=== PATIENT | male | born 1980 | race Caucasian/White ===

== ENCOUNTER 2018-12-21 21:22 | Inpatient (IN) | payer MEDICAID ==
[~2018-12-21] VITALS: Ht 172.7 cm; Wt 84.1 kg
--- NOTE | 2018-12-21 22:20 | NUR ---
PT IN BED RESTING, DENIES ANY NEEDS AT THIS TIME.
[2018-12-21 22:44] LABS: BASOPHILS 0.3 % (0-2); EOSINOPHILS 4.8 % (0-7); HEMATOCRIT 43.1 % (42.0-54.0); HEMOGLOBIN 15.5 g/dL (13.5-17.5); IMMATURE GRANULOCYTES 0.8 % (0-5); LYMPHOCYTES 29.5 % (15-50); MCH 32.8 pg (26.0-34.0); MCV 91.1 fL (80.0-100.0); MEAN PLATELET VOLUME 9.3 fL (7.4-10.4); MONOCYTES 6.3 % (2-11); NEUTROPHILS 58.3 % (40-80); PLATELET COUNT 203 10x3/uL (130-400); RBC 4.73 10x6/uL (4.20-6.10); RDW 12.9 % (11.5-14.5); WBC 8.7 10x3/uL (4.8-10.8)
[2018-12-21 22:53] LABS: ALBUMIN 3.9 g/dL (3.4-5.0); ANION GAP 15.8 mmol/L (8-16); BILIRUBIN - TOTAL 0.23 mg/dL (0.2-1.3); CARBON DIOXIDE 21.6 mmol/L (21.0-32.0); CREATININE - SERUM 1.4 mg/dL (0.6-1.3); POTASSIUM - SERUM 4.4 mmol/L (3.5-5.1); PROTEIN - SERUM 7.8 g/dL (6.4-8.2)
--- NOTE | 2018-12-21 23:00 | NUR ---
PT STOOD UP AND PULLED IV OUT. DRESSING APPLIED TO SITE TO STOP BLEEDING. PT INSTRUCTED TO SIT BACK DOWN IN BED THAT WE NEEDED TO GIVE HIM MORE FLUIDS SO WE NEEDED TO START ANOTHER IV.
[2018-12-22 03:17] VITALS: BP 94/57; BMI 28.1
--- NOTE | 2018-12-22 03:48 | NUR ---
RDCIEVED REPORT FROM [facility], PT ARRIVED BY WHEELCHAIR, VSS WITH BP 97/64 @ RHIS TIME. AAO, BUT APPEARS DROWSY. PT HAD A KNIFE IN HIS BAG, CALLED SECURITY. SECURITY MAN STATES THE BAG SHOULD NOT HAVE LEFT ER IN THE FIRST PLACE. HE STATES TO NOTIFY THE SNUFF GRINDER AND SCREENER. PT CURRENTLY RESTING IN BED. IV BANANNA BAG INFUSING @ 125MLS/HR. PT DENIES ANY FURTHER NEEDS AT THIS TIME. WILL CTM.
--- NOTE | 2018-12-22 03:58 | NUR ---
RECONCILER CALLY KATZ TO CALL ER REGISTRATTION TO COME PICK KNIFE/BAG UP. ER REGISTRATION CALLED AND NOTIFIED.
--- NOTE | 2018-12-22 04:36 | NUR ---
CONDUCTED A SUICIDE SCREEN ON PT, PT ANSWERED YES TO ALL QUESTION ASKED. HE STATES HE HAS BEEN DEPRESSED FOR MONTHS, HE HAD TRIED TO KILL HIMSELF ON SEVERAL OCCASSIONS TO NO AVAIL. HE STATED "AND RECENTLY I BOUGHT A BLUE KNIFE TO KILL MYSELF AFTER I HAVE HAD SEVERAL BOTTLES OF VODKA, BUT I PASSED OUT, AND THAT'S HOW I ENDED IN THE ER." PT STATES HE IS STILL HAVING THIS THOUGHTS AND HE BELIEVES ITS STRONGER THAN EVER. HE ALSO STATES "I THINK I NEED TO BE ADMITTED TO [facility] RN EMERGENCY ROOM NOTIFIED. PT BLOOD ALCOHOL AT THIS TIME IS 387. WILL CTM.
--- NOTE | 2018-12-22 04:43 | NUR ---
TANESHA FROM [facility] CALLED AND STATED THAT A SUICIDE ASSESSMENT WILL BE DONE ONLY IF BLOOD ALCOHOL LEVEL IS LESS THAN 100. PT IN BED WITH EYES CLOSE AT THIS TIME. WILL CTM.
--- NOTE | 2018-12-22 07:46 | NUR ---
WAITING FOR BLOOD ALCOHOL LEVEL. WHEN IT IS BELOW 100 I WAS TOLD WE WILL GET ANOTHER RISK ASSESSMENT COMPLETED. I AM GOING TO CALL FIRE EXTINGUISHER INSPECTOR AGAIN WELL.
[2018-12-22 09:59] VITALS: BP 126/78
--- NOTE | 2018-12-22 09:59 | NUR ---
PATIENT IS RESTING QUIETLY AT THIS TIME. WILL CONTINUE TO MONITOR CLOSELY. PAGING DWORKIN TO FIND OUT WHEN THE NEXT BLOOD ALCOHOL LEVEL NEEDS DRAWN. WILL REPORT TO BRIM FLEXER WHEN IT IS BELOW 100 SO THAT HE CAN HAVE ANOTHER ASSESSMENT DONE.
[2018-12-22 10:15] VITALS: Ht 172.7 cm; Wt 84.1 kg
--- NOTE | 2018-12-22 11:29 | NUR ---
PATIENT IS RESTING QUIETLY. DENIES ANY DESIRE TO HURT HIMSELF AT THIS TIME. CALLED [facility] FOR DR BAKER ABOUT THE BLOOD ALCOHOL LEVEL. WAITING ON RESULTS AND WILL GET ANOTHER PSYCH ASSESSMENT. DR HOUSER HAS BEEN CONSULTED.
--- NOTE | 2018-12-22 12:57 | NUR ---
PATIENT REPORTS THAT HE IS NOT FEELING SUICIDAL AT THIS TIME. HE REPORTS THAT HE THOUGHT HE HAD FELT THAT WAY BECAUSE HE DRANK SO MUCH.
[2018-12-22 13:22] LABS: UDS - AMPHET NEGATIVE QUAL (NEGATIVE); UDS - BARB NEGATIVE QUAL (NEGATIVE); UDS - BENZO NEGATIVE QUAL (NEGATIVE); UDS - COCAINE NEGATIVE QUAL (NEGATIVE); UDS - OPIATE NEGATIVE QUAL (NEGATIVE); UDS - PCP NEGATIVE QUAL (NEGATIVE); UDS - THC NEGATIVE QUAL (NEGATIVE)
[2018-12-22 13:51] LABS: APPEARANCE CLEAR (CLEAR); BILIRUBIN NEGATIVE (NEGATIVE); COLOR YELLOW (YELLOW); GLUCOSE NEGATIVE (NEGATIVE); KETONE MODERATE mg/dL (NEGATIVE); NITRITE NEGATIVE (NEGATIVE); PROTEIN NEGATIVE (NEGATIVE); SPECIFIC GRAVITY 1.025 (1.005-1.020); UROBILINOGEN NORMAL (NORMAL)
[2018-12-22 14:05] VITALS: BP 124/84
--- NOTE | 2018-12-22 14:32 | NUR ---
WAITING ON BLOOD ALCOHOL TO GO DOWN BELOW 100.
--- NOTE | 2018-12-22 16:26 | NUR ---
DR BAKER WANTS THE PATIENT TO HAVE A SITTER. THERE IS A CONSULT FOR DR SOCAR ACKNOWLEDGED THIS MORNING AT 10:30. CALLED CHASSIS ENGINEER AND SHE SAID WE HAVE TO WAIT FOR DAYNE TO ORDER THE SITTER. PATIENT HAS HAD MORE ANXIETY WITHIN THE LAST 30 MINUTES. GIVING HIM FOOD AND STARTING LIBRIUM AND GIVING FLUIDS. PATIENTS PARTNER CALLED CONCERNED AND REPORTS THAT THEY WILL NEED HELP GETTING HIM HOME FROM THE HOSPITAL WHEN HE IS DISCHARGED. THEY ASKED FOR ASSISTANCE PAYING FOR A CAB. CALLED [facility] AGAIN TO SEE IF WE NEED TO CHECK HIS BLOOD ALCOHOL LEVEL AGAIN. I WAS TOLD THAT DR OSCAR WANTS TO DO A PROPER PSYCH EVAL WHEN THE BLOOD ALCOHOL IS BELOW 100. LAST READING WAS ABOVE 100.
--- NOTE | 2018-12-22 17:02 | NUR ---
PATIENT IS HAVING MORE ANXIETY.
[2018-12-22 17:31] VITALS: BP 152/81
--- NOTE | 2018-12-22 19:48 | NUR ---
CALLED MAXINE,[employer]EB[employer] AND POWER PLANT OPERATIONS MANAGER, AND [employer]INOR [employer]. FILLED OUT SUICIDE RISK ASSESSMENT AND WAS POSITIVE. DR OSCAR CAME UP AND SPOKE WITH THE PATIENT JUST NOW.
[2018-12-22 20:00] VITALS: BP 130/88
--- NOTE | 2018-12-22 20:00 | NUR ---
PATIENT LAYING IN BED. NO COMPLAINTS AT THIS TIME. NO DISTRESS NOTED.
[2018-12-23 05:43] VITALS: BP 146/78
[2018-12-23 06:21] LABS: BASOPHILS 0.1 % (0-2); EOSINOPHILS 2.3 % (0-7); HEMATOCRIT 43.3 % (42.0-54.0); HEMOGLOBIN 15.5 g/dL (13.5-17.5); IMMATURE GRANULOCYTES 0.3 % (0-5); LYMPHOCYTES 13.6 % (15-50); MCH 32.1 pg (26.0-34.0); MCHC 35.8 g/dL (31.0-37.0); MCV 89.6 fL (80.0-100.0); MEAN PLATELET VOLUME 9.2 fL (7.4-10.4); MONOCYTES 16.3 % (2-11); NEUTROPHILS 67.4 % (40-80); PLATELET COUNT 167 10x3/uL (130-400); RBC 4.83 10x6/uL (4.20-6.10); RDW 12.8 % (11.5-14.5)
[2018-12-23 06:46] LABS: ALBUMIN 3.3 g/dL (3.4-5.0); ALKALINE PHOSPHATASE 61 U/L (46-116); ALT (SGPT) 31 U/L (10-68); BILIRUBIN - TOTAL 0.74 mg/dL (0.2-1.3); CALCIUM 8.5 mg/dL (8.5-10.1); CARBON DIOXIDE 25.4 mmol/L (21.0-32.0); CHLORIDE - SERUM 106 mmol/L (98-107); GLUCOSE 83 mg/dL (74-106); POTASSIUM - SERUM 3.9 mmol/L (3.5-5.1); PROTEIN - SERUM 6.9 g/dL (6.4-8.2); SODIUM 141 mmol/L (136-145)
[2018-12-23 06:47] LABS: CALC OSMOLALITY 277 mosm/kg (275-300); CREATININE - SERUM 0.9 mg/dL (0.6-1.3); UREA NITROGEN 8 mg/dL (7-18); eGFR NON AFRICAN AMERICAN > 90 mL/min (90-120)
--- NOTE | 2018-12-23 07:07 | NUR ---
PATIENT SITTING ON THE SIDE OF THE BED. NO O2 NOTED AND NO SIGNS OF DISTRESS ARE NOTED. IV TO THE LEFT HAND IS PATENT AND INFUSING NORMAL SALINE. NO SITTER IS NOTED AT THIS TIME. BED IS IN LOW POSITION AND CALL LIGHT IS IN REACH. PATIENT DENIES ANY PAIN AT THIS TIME.
[2018-12-23 09:16] VITALS: BP 141/79
[2018-12-23 13:20] VITALS: BP 160/93
--- NOTE | 2018-12-23 13:52 | CN ---
PATIENT NAME:NAVDEEP ANDREWS MEDICAL RECORD: [id number] : 80 LOCATION:[place] D.2132 ADMIT DATE: 12/22/18 ACCOUNT: [id number] CONSULTING PHYSICIAN: WENDY OSCAR MD REFERRING PHYSICIAN: DONATO JEFF MD DATE OF CONSULTATION: 12/22/2018 PSYCHIATRIC CONSULTATION IDENTIFYING DATA: The patient is 38 years old and he is admitted to the hospital secondary to suicidal statements. CHIEF COMPLAINT: Apparently the patient drank a liter of vodka and two 6 packs of beer in a short period of time. He was in public and was arrested for public intoxication. For some reason, I suppose is probably related to some suicidal statements. The police brought him to the hospital. It has been sometime since he had consumed alcohol and he still had a blood alcohol level of 292 indicating that he was probably close to a toxic dose when he was arrested. The patient is now completely sober, cooperative, and fully oriented. He has a completely euthymic mood and an appropriate affect. He is apologetic for threatening Dr. Jeff and says that he often does stupid and foolish things when he is intoxicated. His urine drug screen was negative for methamphetamine and marijuana, although he states he occasionally will use both. He tells me that his primary drug of choice is alcohol and that he is a binge drinker. He has had difficulty with alcohol withdrawal in the past. He has been to a residential program some years ago and that was the [facility] here in [place]. He would very much like to go back there. MENTAL STATUS EXAMINATION: The patient is awake, alert and oriented to person, place, time and situation. His mood is euthymic. His affect appropriate. Thought processes are goal directed. Memory, concentration, and abstraction abilities are intact. He denies any active intent to harm himself or others as well as overt psychotic symptoms. ASSESSMENT: Alcohol use disorder, severe. PLAN: At this time, the patient is not depressed, not suicidal, and not homicidal. He should be watched for alcohol withdrawal and he can hopefully be transferred to a residential program tomorrow. He is very much interested in this. He does not need a sitter. He is capable of making reasonable informed consent decisions and he is capable of controlling and conforming his behaviors to standards of law and Society. By that I mean, he freely chooses to drink even though when he is intoxicated he does things he would not ordinarily do. He still is responsible for those things when he is intoxicated because he chooses to drink and knows that when he does so, he behaves irrationally. TRANSINT:[id number] Voice Confirmation ID: [id number] DOCUMENT ID: [id number] CONSULT REPORT [id number] NAVDEEP ANDREWS PETER MD at 1352 CC: [id number] DICTATION DATE: 12/22/182003 HOSPITAL SOCIAL WORKER: 12/23/18 0036 ADM IN [facility] [address] [place] [address]
--- NOTE | 2018-12-23 16:06 | MORECARE ---
CASE MANAGEMENT DISCHARGE SUMMARY PATIENT: NAVDEEP ANDREWS UNIT: [id number] ADM DATE: 12/22/18 AGE: 38 : 80 SEX: M ROOM/BED: D.2132 AUTHOR: SUZI CARVALHO PHYSICIAN: REFERRING PHYSICIAN: DONATO BAKER MD DATE OF SERVICE: 12/23/18 Discharge Plan Patient Name: NAVDEEP ANDREWS Facility: [facility]:[place] : 1980 Planned Disposition: Home Anticipated Discharge Date: 12/23/18 Discharge Date: 12/23/2018 Expected LOS: 1 Initial Reviewer: [email or web address] Initial Review Date: 12/23/2018 Generated: 12/23/18 5:05 pm Patient Name: NAVDEEP ANDREWS Page 14454 at 1606 All edits/amendments must be made on the electronic document DICTATION DATE: 12/23/18 1605 CHEMICAL PROCESS ANALYST: CRISSY 12/23/18 1605 RPT#: [id number] DC DATE:12/23/18 STATUS: DIS IN [facility] [address] [place] [address] END OF REPORT
--- NOTE | 2018-12-23 16:14 | MORECARE ---
CASE MANAGEMENT DISCHARGE SUMMARY PATIENT: NAVDEEP ANDREWS UNIT: [id number] ADM DATE: 12/22/18 AGE: 38 : 80 SEX: M ROOM/BED: D.2132 AUTHOR: SUZI CARVALHO PHYSICIAN: REFERRING PHYSICIAN: DONATO BAKER MD DATE OF SERVICE: 12/23/18 Discharge Plan Patient Name: NAVDEEP ANDREWS Facility: [facility]:[place] : 1980 Planned Disposition: Home Anticipated Discharge Date: 12/23/18 Discharge Date: 12/23/2018 Expected LOS: 1 Initial Reviewer: [email or web address] Initial Review Date: 12/23/2018 Generated: 12/23/18 5:14 pm DCPIA - Discharge Planning Initial Assessment Updated by [email or web address]: John Jay on 12/23/18 4:13 pm * Is the patient Alert and Oriented? Yes * How many steps to enter\\exit or inside your home? NONE * PCP [facility], PT IS UNSURE OF WHO THE DOCTOR IS NOW * Pharmacy [facility] * Preadmission Environment Home with Family * ADLs Independent * Equipment None * Other Equipment NO MEDICAL EQUIPMENT PROVIDER PREFERENCE * List name and contact numbers for known caregivers / representatives who currently or will assist patient after discharge: ALFONZO ANDREWS / DANIEL CALLAHAN, FATHER / MOTHER, * Verbal permission to speak to the caregivers and representatives has been obtained from the patient. N/A * Community resources currently utilized Other * Please name any agencies selected above. "[facility] [employer] * Additional services required to return to the preadmission environment? Yes * Can the patient safely return to the preadmission environment? Yes * Has this patient been hospitalized within the prior 30 days at any hospital? No Last DP export: 12/23/18 3:06 p Patient Name: NAVDEEP ANDREWS Page 83439 at 1614 All edits/amendments must be made on the electronic document DICTATION DATE: 12/23/18 1614 DYE MIXER: RCISSY 12/23/18 1614 RPT#: [id number] DC DATE:12/23/18 STATUS: DIS IN [facility] [address] [facility] [place] [address] END OF REPORT
--- NOTE | 2018-12-23 16:24 | MORECARE ---
CASE MANAGEMENT DISCHARGE SUMMARY PATIENT: NAVDEEP ANDREWS UNIT: [id number] ADM DATE: 12/22/18 AGE: 38 : 80 SEX: M ROOM/BED: D.2132 AUTHOR: SUZI CARVALHO PHYSICIAN: REFERRING PHYSICIAN: DONATO BAKER MD DATE OF SERVICE: 12/23/18 Discharge Plan Patient Name: NAVDEEP ANDREWS Facility: [facility]:[place] : 1980 Planned Disposition: Home Anticipated Discharge Date: 12/23/18 Discharge Date: 12/23/2018 Expected LOS: 1 Initial Reviewer: [email or web address] Initial Review Date: 12/23/2018 Generated: 12/23/18 5:24 pm Comments DCP- Discharge Planning Updated by [email or web address]: John Jay on 12/23/18 3:[address] Patient Name: NAVDEPE ANDREWS Admission Status: ER Accout number: [id number] Admission Date: 12-22-2018 : 1980 Admission Diagnosis: Attending: DONATO BAKER Current LOS: 1 Anticipated DC Date: 12-23-2018 Planned Disposition: Home Primary Insurance: MEDICAID [place] Discharge Planning Comments: CM RECEIVED REQUEST THAT PT WANTS TO GO TO TREATMENT AT [facility]. CM MET WITH PT IN ROOM TO DISCUSS DISCHARGE PLANNING AND NEEDS. PT REPORTS LIVING AT HOME INDEPENDENTLY WITH HIS PARTNER. PT HAS NO MEDICAL EQUIPMENT AND NO OUTSIDE SERVICES ASSISTING IN THE HOME. CM DISCUSSED AVAILABILITY OF HOME HEALTH, REHAB SERVICES AND MEDICAL EQUIPMENT. PT DENIES DISCHARGE NEEDS, REPORTS HE NEEDS HELP TO GET HOME AT DISCHARGE. PT HAS BEEN DRINKING VODKA AND BEER EVERY OTHER DAY FOR MONTHS AND HAS HAD A WEEK OF SOBRIETY IN THE PAST SEVERAL YEARS. PT WAS IN REHAB AT [facility] ABOUT 7 YEARS AGO AND WAS IN RESIDENTIAL TREATMENT FOR 30 DAYS. PT REPORTS HE DOES GO TO [facility] SUPPORT GROUP MEETINGS BUT HAS STOPPED GOING AND HIS DRINKING JUST GOT OUT OF CONTROL. CM DISCUSSED GOING TO TREATMENT. PT STATES HE WILL CALL WHEN HE GETS HOME AND DOES NOT WANT TO GO TO TREATMENT NOW. CM ENCOURAGED PT TO CALL IMMEDIATELY AND SOON POSSIBLE. PT PROMISES TO CALL BUT ONLY AFTER HE GETS HOME. CM PROVIDED PT WITH TREATMENT PROVIDERS CONTACT INFORMATION WE[facility] COMMUNITY SUPPORT INFORMATION. CM PROVIDED PT WITH TWO BUS PASSES PT HAS NO [place]ONEY FOR TRANSPORT AND HIS PARENTS ARE NOT ABLE TO ASSIST WITH TRANSPORT. PT DENIES HAVING FRIENDS TO ASSIST. PT NEEDED TWO BUS PASSES HE REQUIRED TRANSFER TO SECOND BUS TO GET HOME. REINFORCING STEEL WORKER WIRE MESH NURSE NOTIFIED. Application Developer Manager: John Jay DCPIA - Discharge Planning Initial Assessment Updated by [email or web address]: John Jay on 12/23/18 4:13 pm * Is the patient Alert and Oriented? Yes * How many steps to enter\\exit or inside your home? NONE * PCP [facility], PT IS UNSURE OF WHO THE DOCTOR IS NOW * Pharmacy [facility] * Preadmission Environment Home with Family * ADLs Independent * Equipment None * Other Equipment NO MEDICAL EQUIPMENT PROVIDER PREFERENCE * List name and contact numbers for known caregivers / representatives who currently or will assist patient after discharge: ALFONZO ANDREWS / DANIEL CALLAHAN, FATHER / MOTHER, * Verbal permission to speak to the caregivers and representatives has been obtained from the patient. N/A * Community resources currently utilized Other * Please name any agencies selected above. "[employer]" - [employer] * Additional services required to return to the preadmission environment? Yes * Can the patient safely return to the preadmission environment? Yes * Has this patient been hospitalized within the prior 30 days at any hospital? No Last DP export: 12/23/18 3:14 p Patient Name: NAVDEEP ANDREWS Page 53648 at 1624 All edits/amendments must be made on the electronic document DICTATION DATE: 12/23/181623 VAULT PERSON: CRISSY 12/23/181623 RPT#: [id number] DC DATE:12/23/18 STATUS: DIS IN [facility] [address] [place] [address] END OF REPORT
== END 2018-12-23 14:42 | disposition home or self-care (01) | DRG 897 ==
LOC: D.ER 21:22 → D.M2 12-22 02:22 → OBSVTIME 12-22 02:22 → D.M2 12-22 02:22
PROVIDERS: Family Medicine; ADMIT Internal Medicine Nephrology; ATTEND Internal Medicine Nephrology
DX: F10.229 Alcohol dependence with intoxication, unspecified (principal); R45.851 Suicidal ideations; N17.9 Acute kidney failure, unspecified; Y90.8 Blood alcohol level of 240 mg/100 ml or more; F32.9 Major depressive disorder, single episode, unspecified; F41.9 Anxiety disorder, unspecified; F17.213 Nicotine dependence, cigarettes, with withdrawal; F15.90 Other stimulant use, unspecified, uncomplicated; F12.90 Cannabis use, unspecified, uncomplicated

== ENCOUNTER 2019-03-16 18:40 | Emergency (ER) | payer MEDICAID ==
[~2019-03-16] VITALS: Ht 172.7 cm; Wt 81.8 kg
[2019-03-16 18:41] VITALS: Ht 172.7 cm; Wt 81.8 kg
[2019-03-16 19:25] LABS: HEMATOCRIT 43.5 % (42.0-54.0); HEMOGLOBIN 15.6 g/dL (13.5-17.5); LYMPHOCYTES 33.3 % (15-50); MCH 31.4 pg (26.0-34.0); MCHC 35.9 g/dL (31.0-37.0); MCV 87.5 fL (80.0-100.0); MEAN PLATELET VOLUME 8.6 fL (7.4-10.4); NEUTROPHILS 61.8 % (40-80); PLATELET COUNT 213 10x3/uL (130-400); RBC 4.97 10x6/uL (4.20-6.10); RDW 12.8 % (11.5-14.5)
[2019-03-16 19:46] LABS: CALC OSMOLALITY 279 mosm/kg (275-300); CARBON DIOXIDE 22.1 mmol/L (21.0-32.0); CHLORIDE - SERUM 105 mmol/L (98-107); CREATININE - SERUM 1.1 mg/dL (0.6-1.3); GLUCOSE 93 mg/dL (74-106); POTASSIUM - SERUM 3.7 mmol/L (3.5-5.1); SODIUM 140 mmol/L (136-145); UREA NITROGEN 15 mg/dL (7-18); eGFR NON AFRICAN AMERICAN 79 mL/min (90-120)
[2019-03-16 20:01] LABS: ALBUMIN 4.1 g/dL (3.4-5.0); ALKALINE PHOSPHATASE 83 U/L (46-116); ALT (SGPT) 42 U/L (10-68); BILIRUBIN - TOTAL 0.27 mg/dL (0.2-1.3); PROTEIN - SERUM 7.8 g/dL (6.4-8.2)
[2019-03-16 20:18] LABS: APPEARANCE CLEAR (CLEAR); BILIRUBIN NEGATIVE (NEGATIVE); COLOR YELLOW (YELLOW); GLUCOSE NEGATIVE (NEGATIVE); KETONE NEGATIVE (NEGATIVE); NITRITE NEGATIVE (NEGATIVE); PROTEIN NEGATIVE (NEGATIVE); UROBILINOGEN NORMAL (NORMAL)
[2019-03-16 20:30] LABS: UDS - AMPHET NEGATIVE QUAL (NEGATIVE); UDS - BARB NEGATIVE QUAL (NEGATIVE); UDS - BENZO POSITIVE QUAL (NEGATIVE); UDS - COCAINE NEGATIVE QUAL (NEGATIVE); UDS - OPIATE NEGATIVE QUAL (NEGATIVE); UDS - PCP NEGATIVE QUAL (NEGATIVE); UDS - THC NEGATIVE QUAL (NEGATIVE)
[2019-03-17 13:23] VITALS: BP 154/103
== END 2019-03-17 13:24 | disposition home or self-care (01) ==
LOC: D.ER 18:40
PROVIDERS: Family Medicine
DX: F10.129 Alcohol abuse with intoxication, unspecified (principal); Y90.8 Blood alcohol level of 240 mg/100 ml or more

== ENCOUNTER 2019-10-08 02:04 | Observation (INO) | payer MEDICAID ==
[2019-10-08] VITALS (10 sets, daily range): BP systolic 97–139; BP diastolic 59–102; Ht 172.7 cm; Wt 93.2 kg
[~2019-10-08] VITALS: Ht 172.7 cm; Wt 93.2 kg
--- NOTE | 2019-10-08 02:20 | NUR ---
POISON CONTROL CALLED AT THIS TIME
[2019-10-08 02:30] LABS: BILIRUBIN NEGATIVE (NEGATIVE); GLUCOSE NEGATIVE (NEGATIVE); KETONE NEGATIVE (NEGATIVE); NITRITE NEGATIVE (NEGATIVE); SPECIFIC GRAVITY 1.015 (1.005-1.020); UROBILINOGEN NORMAL (NORMAL)
[2019-10-08 02:31] LABS: BASOPHILS 0.3 % (0-2); EOSINOPHILS 3.2 % (0-7); HEMATOCRIT 46.1 % (42.0-54.0); HEMOGLOBIN 15.6 g/dL (13.5-17.5); IMMATURE GRANULOCYTES 0.8 % (0-5); LYMPHOCYTES 42.7 % (15-50); MCH 30.8 pg (26.0-34.0); MCHC 33.8 g/dL (31.0-37.0); MCV 91.1 fL (80.0-100.0); MEAN PLATELET VOLUME 8.9 fL (7.4-10.4); PLATELET COUNT 227 10x3/uL (130-400); RBC 5.06 10x6/uL (4.20-6.10); RDW 13.6 % (11.5-14.5); WBC 7.6 10x3/uL (4.8-10.8)
[2019-10-08 02:38] LABS: UDS - AMPHET NEGATIVE QUAL (NEGATIVE); UDS - BARB NEGATIVE QUAL (NEGATIVE); UDS - BENZO NEGATIVE QUAL (NEGATIVE); UDS - COCAINE NEGATIVE QUAL (NEGATIVE); UDS - OPIATE NEGATIVE QUAL (NEGATIVE); UDS - PCP NEGATIVE QUAL (NEGATIVE); UDS - THC NEGATIVE QUAL (NEGATIVE)
[2019-10-08 02:39] LABS: CALC OSMOLALITY 278 mosm/kg (275-300); CALCIUM 8.6 mg/dL (8.5-10.1); CARBON DIOXIDE 25.7 mmol/L (21.0-32.0); CHLORIDE - SERUM 106 mmol/L (98-107); CREATININE - SERUM 1.1 mg/dL (0.6-1.3); GLUCOSE 105 mg/dL (74-106); POTASSIUM - SERUM 3.9 mmol/L (3.5-5.1); SODIUM 140 mmol/L (136-145); UREA NITROGEN 13 mg/dL (7-18); eGFR NON AFRICAN AMERICAN 79 mL/min (90-120)
[2019-10-08 02:44] LABS: ALBUMIN 4.1 g/dL (3.4-5.0); ALKALINE PHOSPHATASE 82 U/L (30-120); ALT (SGPT) 32 U/L (10-68); BILIRUBIN - TOTAL 0.26 mg/dL (0.2-1.3); MAGNESIUM - SERUM 2.3 mg/dL (1.8-2.4); PROTEIN - SERUM 7.8 g/dL (6.4-8.2)
--- NOTE | 2019-10-08 08:00 | NUR ---
RECEIVED FROM ER PER STRETCHER. AMBULATE TO BED. GAIT GOOD. ANXIOUS, SPEAKING LOUDLY, NOT LISTENING TO INSTRUCTIONS, STATES WE ARE BOSSY.IV LEFT HAND INFUSING WITH BANANA BAG. ON MONITOR SR. STATES HE IS HURTING ALL OVER, BUT JUST WANTS SLEEP RIGHTNOW. ALL CLOTHES REMOVED FROM ROOM. HE STATES THE POLICE HAVE HIS WALLET.
[2019-10-08] MEDS ORDERED: KLONOPIN1 MG PO (08:22)
[2019-10-08] MEDS ORDERED: CELEXA40 MG PO (08:23)
--- NOTE | 2019-10-08 09:04 | NUR ---
MORE COOPERATIVE. ANSWERING QUESTIONS. VOIDED 550 CLEAR YARON URINE. ICE WATER PROVIDED. ATE FULL BREAKFAST IN ER.
--- NOTE | 2019-10-08 10:14 | NUR ---
dr. larkin notified and reviwed pt's behavior and assessment results. pt is a low risk per dr. larkin. dr. larkin stated to give resources to pt at time of discharge. no further orders at this time. resources reviewed with pt and he verbalizied understanding.
--- NOTE | 2019-10-08 12:33 | NUR ---
PER DR SERRANO, PT MEDICALLY STABLE TO TRANSFER OUT FOR INPATIENT PLACEMENT.
--- NOTE | 2019-10-08 14:02 | NUR ---
NOTED ORDER FOR PT TO TRANSFER TO INPATIENT PSYCH PLACEMENT. PER DR SERRANO PT IS MEDICALLY STABLE FOR TRANSFER. CALLED TRANSFER CENTER, SPOKE WITH MARYBETH. WILL FAX NECESSARY INFORMATION TO TRANSFER CENTER. VSS. WILL CONTINUE PLAN OF CARE.
--- NOTE | 2019-10-08 14:30 | NUR ---
PATIENT INFORMATION FAX TO TRANSFER CENTER FOR INPATIENT PLACEMENT. PER RECOMMENDATIONS OF ERIN AND DR. SERRANO
--- NOTE | 2019-10-08 16:30 | NUR ---
REGULAR DIET TRAY SERVED FOR DINNER. ATE WELL. NO DISTRESS. WATCHING TV
--- NOTE | 2019-10-08 16:54 | NUR ---
TRANSFER CENTER CALLED. CONFIRM PAPER WORK ON PATIENT RECEIVED. STATE THAT SENT TO SEVERAL UNITS. AWAITING REPLY.
--- NOTE | 2019-10-08 16:54 | NUR ---
SLEEPING ON SIDE. NO DISTRESS. RESP DEEP AND REGULAR.
--- NOTE | 2019-10-08 19:05 | NUR ---
RECIVED BEDSIDE SHIFT REPORT. PT IS A&OX4. VSS. HE VOICES "NO" TO PAIN OR NEEDS OTHER THAN"I AM TIRED AND WANT TO REST". I TURNED LIGHT OFF FOR PT SO HE COULD REST. PERFORMED FULL ASSESSMENT AND WILL DOC IN FLOW SHEET. BED IS LOW,SIDE RAISLX2,CALL LIGHT WITHIN REACH. BED ALARM IS ON
--- NOTE | 2019-10-08 20:22 | NUR ---
PT IS RESTING IN BED WITH EYES CLOSED ON RIGHT SIDE. BED IS LOW,SIDE RIALSX2,CALL LIHGT WITHIN REACH. WILL CONINTUE TO MONITOR. BED ALARM IS ON
--- NOTE | 2019-10-08 21:12 | NUR ---
PT IS RESTING IN BED WITH EYES CLOSED SNORING. VSS. BED IS LOW,SIDE RAISLX2,CALL LIGHT WITHIN REACH. BED ALARM IS ON
--- NOTE | 2019-10-08 22:00 | NUR ---
PT USED CALL LIGHT AND VOICED"I NEED TO USE THE BR". I STOOD BY WHY HE GOT ON BEDSIDE CAMMODE AND THEN ALLOWED HIM SOME PRIVACY. HE USED CALL LIGHT WHEN FINSHED. HE HAD LARGE BROWN SOFT BM. HE GOT HIMSELF BACK IN BED SAFELY. VSS. HE VOICED"THANK YOU". HE C/O OF "NO" PAIN. BED IS LOW,SIDE RAISLX2,CALL LIGHT WITHIN REACH. BED ALARM IS ON
--- NOTE | 2019-10-08 23:15 | NUR ---
PT IS RESTING IN BED WITH EYES CLOSED SNORING. VSS. PERFORMED RE-ASSESSMENT AT THIS TIME AND WILL DOC IN FLOW SHEET. NO NEEDS OR C/O WERE VOICED. PT VOICES "NO" TO PAIN. BED IS LOW,SIDE RAILSX2,CALL LIGHT WITHIN REACH. BED ALARM IS ON. WILL CONITNUE TO MONITOR
[2019-10-09] VITALS (9 sets, daily range): BP systolic 101–122; BP diastolic 64–85
--- NOTE | 2019-10-09 00:45 | NUR ---
POISON CONTROL CALLED TO CHECK ON PT.
--- NOTE | 2019-10-09 01:47 | NUR ---
PT IS RESTING IN BED WITH EYES CLOSED, SNORING. VSS. AWAKES EASILY AND VOICES"IM GOOD". NO C/O OF PAIN. BED IS LOW,SIDE RAISLX2,CALL LIGHT WITHIN REACH. BED ALARM IS ON. WILL CONTINUE TO MONITOR
--- NOTE | 2019-10-09 03:13 | NUR ---
PT IS RESTING IN BED WITH EYES CLOSED. HIS VSS. HE AWAKES EASILY AND VOICES "NO" TO PAIN. PERFORMED RE-ASSESSMENT AT THIS TIME AND WILL DOC IN FLOWSHEET. BED IS LOW,SIDE RAISLX2,CALL LIGHT WITHIN REACH. BED ALARM IS ON
[2019-10-09 04:41] LABS: BASOPHILS 0.4 % (0-2); EOSINOPHILS 3.3 % (0-7); HEMATOCRIT 44.8 % (42.0-54.0); HEMOGLOBIN 14.8 g/dL (13.5-17.5); IMMATURE GRANULOCYTES 0.5 % (0-5); LYMPHOCYTES 37.6 % (15-50); MCH 30.8 pg (26.0-34.0); MEAN PLATELET VOLUME 9.2 fL (7.4-10.4); MONOCYTES 11.4 % (2-11); NEUTROPHILS 46.8 % (40-80); PLATELET COUNT 200 10x3/uL (130-400); RBC 4.81 10x6/uL (4.20-6.10); RDW 13.8 % (11.5-14.5); WBC 5.7 10x3/uL (4.8-10.8)
[2019-10-09 04:44] LABS: MCV 93.1 fL (80.0-100.0)
[2019-10-09 04:53] LABS: ALBUMIN 3.3 g/dL (3.4-5.0); ALKALINE PHOSPHATASE 68 U/L (30-120); ALT (SGPT) 24 U/L (10-68); CALC OSMOLALITY 274 mosm/kg (275-300); CALCIUM 8.2 mg/dL (8.5-10.1); CARBON DIOXIDE 24.1 mmol/L (21.0-32.0); CHLORIDE - SERUM 107 mmol/L (98-107); GLUCOSE 91 mg/dL (74-106); POTASSIUM - SERUM 4.2 mmol/L (3.5-5.1); PROTEIN - SERUM 6.5 g/dL (6.4-8.2); SODIUM 138 mmol/L (136-145); UREA NITROGEN 11 mg/dL (7-18); eGFR NON AFRICAN AMERICAN 88 mL/min (90-120)
--- NOTE | 2019-10-09 06:42 | NUR ---
PT IS LAYING IN BED WATCHING TV A&OX4. VSS. VOICES "IM GOING OK". NO NEEDS OR C/O VOICED. INFORMED HIM THAT BREAKFAST WILL BE HERE SOON. HE VOICED"OK, THANK YOU". BED IS LOW,SIDE RAILSX2,CALL LIGHT WITHIN REACH. BED ALARM IS ON
--- NOTE | 2019-10-09 08:04 | NUR ---
LYING IN BED RESTING AT THIS TIME. RESPIRATIONS STEADY AND UNLABORED. VSS. PT AWAKENS EASILY WHEN SPOKEN TO. PT DENIES FEELING SUICIDAL OR THAT HE WISHES TO HARM HIMSELF. WILL CONTINUE PLAN OF CARE.
--- NOTE | 2019-10-09 10:04 | NUR ---
PT AWAKE IN BED AT THIS TIME. DENIES ANY NEEDS. VSS. NO ACUTE DISTRESS NOTED. WILL CONTINUE PLAN OF CARE.
--- NOTE | 2019-10-09 12:03 | NUR ---
SITTING UP ON SIDE OF BED EATING LUNCH AT THIS TIME. VSS. NO ACUTE DISTRESS NOTED. WILL CONTINUE PLAN OF CARE.
--- NOTE | 2019-10-09 14:03 | NUR ---
LYING IN BED AT THIS TIME RESTING. RESPIRATIONS STEADY AND UNLABORED. AWAKENS EASILY WHEN SPOKEN TO. VSS. NO ACUTE DISTRESS NOTED. WILL CONTINUE PLAN OF CARE.
--- NOTE | 2019-10-09 14:11 | NUR ---
CALLED THE TRANSFER CENTER FOR UPDATE ON FINDING PT INPATIENT PSYCH PLACEMENT. SPOKE WITH SUNIL WHO STATED SHE IS STILL WAITING TO HEAR BACK FROM [facility]. NEEDED PAPERWORK AND UPDATED INFORMATION HAS BEEN SENT.
--- NOTE | 2019-10-09 16:05 | NUR ---
CHG BATH OFFERED TO PT, PT DECLINED.
--- NOTE | 2019-10-09 16:53 | NUR ---
PER CATY AT [facility], CANNOT ACCEPT PT WITHOUT A NEGATIVE COVID TEST. NOTIFIED CASE MANAGEMENT OF THIS. WILL SEND UPDATED RESULTS TO [facility] WHEN RECIEVED.
--- NOTE | 2019-10-09 18:36 | NUR ---
NO ACUTE DISTRESS NOTED. NO CHANGE. VSS. WILL CONTINUE PLAN OF CARE.
--- NOTE | 2019-10-09 20:17 | MORECARE ---
CASE MANAGEMENT DISCHARGE SUMMARY PATIENT: NAVDEEP ANDREWS UNIT: [id number] ADM DATE: 10/08/19 AGE: 39 : 80 SEX: M ROOM/BED: D.2305 AUTHOR: SUZI CARVALHO PHYSICIAN: REFERRING PHYSICIAN: RADHA SERRANO DO DATE OF SERVICE: 10/09/19 Discharge Plan Patient Name: NAVDEEP ANDREWS [facility] [facility] 1980 Planned Disposition: Psych facility Anticipated Discharge Date: Discharge Date: Expected LOS: Initial Reviewer: [email or web address] Initial Review Date: 10/08/2019 Generated: 10/09/19 9:16 pm Comments DCP- Discharge Planning Updated by [email or web address]: Betty Denton on 10/09/19 7:[address] Patient has agreed to go to inpatient psych facility for treatment. Nursing has sent request to transfer center for placement. Received notification today that facility is requesting COVID test before they will accept. DCPIA - Discharge Planning Initial Assessment Updated by [email or web address]: Betty Denton on 10/09/19 8:12 pm * Is the patient Alert and Oriented? Yes * How many steps to enter\exit or inside your home? Patient Name: NAVDEEP ANDREWS Page 53854 at 2017 All edits/amendments must be made on the electronic document DICTATION DATE: 10/09/192015 BRIM GREASER OPERATOR: CRISSY 10/09/19 2016 RPT#: [id number] DC DATE: STATUS: ADM IN [facility] [address] [place] [address] END OF REPORT
[2019-10-10] VITALS (8 sets, daily range): BP systolic 101–159; BP diastolic 49–98
[2019-10-10 10:45] LABS: BASOPHILS 0.3 % (0-2); EOSINOPHILS 2.4 % (0-7); HEMATOCRIT 44.7 % (42.0-54.0); HEMOGLOBIN 14.6 g/dL (13.5-17.5); IMMATURE GRANULOCYTES 0.3 % (0-5); LYMPHOCYTES 25.3 % (15-50); MCH 30.2 pg (26.0-34.0); MCHC 32.7 g/dL (31.0-37.0); MCV 92.5 fL (80.0-100.0); MEAN PLATELET VOLUME 9.1 fL (7.4-10.4); MONOCYTES 8.9 % (2-11); NEUTROPHILS 62.8 % (40-80); PLATELET COUNT 188 10x3/uL (130-400); RBC 4.83 10x6/uL (4.20-6.10); RDW 13.6 % (11.5-14.5); WBC 5.9 10x3/uL (4.8-10.8)
[2019-10-10 10:56] LABS: ALBUMIN 3.5 g/dL (3.4-5.0); ALKALINE PHOSPHATASE 69 U/L (30-120); ALT (SGPT) 25 U/L (10-68); BILIRUBIN - TOTAL 0.54 mg/dL (0.2-1.3); CALC OSMOLALITY 273 mosm/kg (275-300); CALCIUM 8.6 mg/dL (8.5-10.1); CARBON DIOXIDE 25.6 mmol/L (21.0-32.0); CHLORIDE - SERUM 105 mmol/L (98-107); CREATININE - SERUM 1.1 mg/dL (0.6-1.3); GLUCOSE 97 mg/dL (74-106); POTASSIUM - SERUM 4.4 mmol/L (3.5-5.1); PROTEIN - SERUM 6.7 g/dL (6.4-8.2); SODIUM 137 mmol/L (136-145); UREA NITROGEN 12 mg/dL (7-18); eGFR NON AFRICAN AMERICAN 79 mL/min (90-120)
--- NOTE | 2019-10-10 20:15 | MORECARE ---
CASE MANAGEMENT DISCHARGE SUMMARY PATIENT: NAVDEEP ANDREWS UNIT: [id number] ADM DATE: 10/08/19 AGE: 39 : [birth year] SEX: M ROOM/BED: D.2305 AUTHOR: SUZI CARVALHO PHYSICIAN: REFERRING PHYSICIAN: RADHA SERRANO DO DATE OF SERVICE: 10/10/19 Discharge Plan Patient Name: NAVDEEP ANDREWS Facility: [facility]:[place] : 1980 Planned Disposition: Psych facility Anticipated Discharge Date: Discharge Date: Expected LOS: Initial Reviewer: [email or web address] Initial Review Date: 10/08/2019 Generated: 10/10/19 9:14 pm Comments DCP- Discharge Planning Updated by [email or web address]: Betty Denton on 10/09/19 7:[address] Patient has agreed to go to inpatient psych facility for treatment. Nursing has sent request to transfer center for placement. Received notification today that facility is requesting COVID test before they will accept. DCPIA - Discharge Planning Initial Assessment Updated by [email or web address]: Betty Denton on 10/09/19 8:12 pm * Is the patient Alert and Oriented? Yes * How many steps to enter\exit or inside your home? External Providers External Provider: [facility] Next Contact Date: Service Request Date: Service Type: Resolution: Reviewer: Comments: Last DP export: 10/09/19 7:17 p Patient Name: NAVDEEP ANDREWS Page 51983 at 2015 All edits/amendments must be made on the electronic document DICTATION DATE: 10/10/192013 INSTRUMENT INSPECTOR: CRISSY 10/10/19 2014 RPT#: [id number] DC DATE: STATUS: ADM IN [facility] [address] [place] [address] END OF REPORT
[2019-10-11] VITALS: BP 133/85
[2019-10-11 01:00] VITALS: BP 115/70
[2019-10-11 02:00] VITALS: BP 116/67
[2019-10-11 03:00] VITALS: BP 116/67
[2019-10-11 04:00] VITALS: BP 116/67
[2019-10-11 04:23] LABS: BASOPHILS 0.3 % (0-2); EOSINOPHILS 2.6 % (0-7); HEMATOCRIT 45.7 % (42.0-54.0); IMMATURE GRANULOCYTES 0.5 % (0-5); LYMPHOCYTES 35.2 % (15-50); MCH 30.4 pg (26.0-34.0); MCHC 32.8 g/dL (31.0-37.0); MCV 92.7 fL (80.0-100.0); MEAN PLATELET VOLUME 9.5 fL (7.4-10.4); MONOCYTES 10.2 % (2-11); NEUTROPHILS 51.2 % (40-80); PLATELET COUNT 196 10x3/uL (130-400); RBC 4.93 10x6/uL (4.20-6.10); RDW 13.6 % (11.5-14.5); WBC 5.8 10x3/uL (4.8-10.8)
[2019-10-11 04:44] LABS: ALBUMIN 3.6 g/dL (3.4-5.0); ALKALINE PHOSPHATASE 72 U/L (30-120); ALT (SGPT) 26 U/L (10-68); CALC OSMOLALITY 279 mosm/kg (275-300); CARBON DIOXIDE 26.9 mmol/L (21.0-32.0); CHLORIDE - SERUM 107 mmol/L (98-107); CREATININE - SERUM 1.1 mg/dL (0.6-1.3); GLUCOSE 92 mg/dL (74-106); POTASSIUM - SERUM 4.1 mmol/L (3.5-5.1); SODIUM 140 mmol/L (136-145); UREA NITROGEN 15 mg/dL (7-18); eGFR NON AFRICAN AMERICAN 79 mL/min (90-120)
[2019-10-11 05:00] VITALS: BP 116/67
--- NOTE | 2019-10-11 11:47 | MORECARE ---
CASE MANAGEMENT DISCHARGE SUMMARY PATIENT: NAVDEEP ANDREWS UNIT: [id number] ADM DATE: 10/08/19 AGE: 39 : 80 SEX: M ROOM/BED: D.2305 AUTHOR: SUZI CARVALHO PHYSICIAN: REFERRING PHYSICIAN: RADHA SERRANO DO DATE OF SERVICE: 10/11/19 Discharge Plan Patient Name: NAVDEEP ANDREWS Facility: [facility]:[place] : 1980 Planned Disposition: Psych facility Anticipated Discharge Date: Discharge Date: 10/11/2019 Expected LOS: Initial Reviewer: [email or web address] Initial Review Date: 10/08/2019 Generated: 10/11/19 12:47 pm Comments DCP- Discharge Planning Updated by [email or web address]: Betty Denton on 10/09/19 7:[address] Patient has agreed to go to inpatient psych facility for treatment. Nursing has sent request to transfer center for placement. Received notification today that facility is requesting COVID test before they will accept. DCPIA - Discharge Planning Initial Assessment Updated by [email or web address]: Betty Denton on 10/09/19 8:12 pm * Is the patient Alert and Oriented? Yes * How many steps to enter\exit or inside your home? Last DP export: 10/10/19 7:15 p Patient Name: NAVDEEP ANDREWS Page 81370 at 1147 All edits/amendments must be made on the electronic document DICTATION DATE: 10/11/19 1147 BID CLERK: CRISSY 10/11/19 1147 RPT#: [id number] DC DATE:10/11/19 STATUS: DIS IN [facility] [address] [facility] [place] [address] END OF REPORT
== END 2019-10-11 06:06 ==
LOC: D.ER 02:04 → OBSVTIME 05:24 → D.ICU 05:24
PROVIDERS: Family Medicine; ADMIT Family Medicine; ATTEND Family Medicine
DX: T42.4X1A Poisoning by benzodiazepines, accidental (unintentional), initial encounter (principal); R45.851 Suicidal ideations; F33.3 Major depressive disorder, recurrent, severe with psychotic symptoms; F10.231 Alcohol dependence with withdrawal delirium

== ENCOUNTER 2019-12-13 22:39 | Emergency (ER) | payer MEDICAID ==
[~2019-12-13] VITALS: Ht 172.7 cm; Wt 71.7 kg
[~2019-12-13 22:39] MED LIST: CELEXA40 MG PO; KLONOPIN1 MG PO
[2019-12-13 22:44] VITALS: Ht 172.7 cm; Wt 71.7 kg
[2019-12-13 22:50] LABS: BILIRUBIN NEGATIVE (NEGATIVE); KETONE NEGATIVE (NEGATIVE); NITRITE NEGATIVE (NEGATIVE); UROBILINOGEN NORMAL (NORMAL)
[2019-12-13 22:59] LABS: UDS - AMPHET NEGATIVE QUAL (NEGATIVE); UDS - BARB NEGATIVE QUAL (NEGATIVE); UDS - BENZO NEGATIVE QUAL (NEGATIVE); UDS - COCAINE NEGATIVE QUAL (NEGATIVE); UDS - OPIATE NEGATIVE QUAL (NEGATIVE); UDS - PCP NEGATIVE QUAL (NEGATIVE); UDS - THC NEGATIVE QUAL (NEGATIVE)
[2019-12-13] MEDS ORDERED: SEROQUEL50 MG PO (23:02)
[2019-12-13 23:13] LABS: BASOPHILS 0.3 % (0-2); EOSINOPHILS 3.7 % (0-7); HEMATOCRIT 44.1 % (42.0-54.0); HEMOGLOBIN 15.1 g/dL (13.5-17.5); IMMATURE GRANULOCYTES 0.9 % (0-5); LYMPHOCYTES 38.5 % (15-50); MCH 30.8 pg (26.0-34.0); MCHC 34.2 g/dL (31.0-37.0); MEAN PLATELET VOLUME 9.1 fL (7.4-10.4); MONOCYTES 7.8 % (2-11); NEUTROPHILS 48.8 % (40-80); PLATELET COUNT 211 10x3/uL (130-400); RDW 13.4 % (11.5-14.5); WBC 6.6 10x3/uL (4.8-10.8)
[2019-12-13 23:26] LABS: ANION GAP 17.2 mmol/L (8-16); CALCIUM 8.4 mg/dL (8.5-10.1); CARBON DIOXIDE 20.7 mmol/L (21.0-32.0); CREATININE - SERUM 1.3 mg/dL (0.6-1.3); POTASSIUM - SERUM 3.9 mmol/L (3.5-5.1)
[2019-12-13 23:32] LABS: BILIRUBIN - TOTAL 0.23 mg/dL (0.2-1.3); MAGNESIUM - SERUM 2.1 mg/dL (1.8-2.4); PROTEIN - SERUM 7.5 g/dL (6.4-8.2)
--- NOTE | 2019-12-14 08:13 | NUR ---
DR OSCAR NOTIFIED AND REVIEWED PT'S BEHAVIOR AND ASSESSMENT. PT IS HIGH RISK. SITTER ORDER AND AT BEDSIDE. SAFETY PLAN INITIATED. RESOURCES GIVEN AND HE VERBALIZES UNDERSTANDING.
[2019-12-14 12:40] VITALS: BP 118/77
== END 2019-12-14 12:59 ==
LOC: D.ER 22:39
PROVIDERS: Family Medicine
DX: R45.851 Suicidal ideations (principal); R78.0 Finding of alcohol in blood; F41.9 Anxiety disorder, unspecified